=== PATIENT | female | born 1990 | race Caucasian/White ===

== ENCOUNTER 2019-11-15 14:22 | Emergency (ER) | payer MEDICAID, SELFPAY ==
[2019-11-15 14:45] VITALS: BP 126/94; PULSE 81; RESP 20; TEMP 36.9; O2SAT 99; BMI 33.3
--- NOTE | 2019-11-15 14:50 | XR_ITS ---
PROCEDURE: XR FOOT LT MIN 3V CLINICAL INDICATION: STEPPED ON A NAIL Pain COMPARISON: No exams were available for comparison FINDINGS: No fracture or dislocation. No lytic or blastic change. There is normal mineralization. The joint spaces are well-preserved. No significant degenerative/arthritic changes. No erosive changes evident. Other findings:None. IMPRESSION: No acute findings. Dictated by: Tavon Wallis MD 11/15/2019 15:35 Electronically signed by Tavon Wallis MD in [place] 11/15/2019 15:35
--- NOTE | 2019-11-15 15:41 | HMH.EDUTC ---
[facility] [place] Disposition Clinical Impression: Puncture wound of left foot, Poison vandana Disposition: Home, Self-Care Condition on Discharge: Good Instructions: DI for Poison Vandana Allergy, DI for Puncture Wound Additional Instructions: Keep the wounds clean and dry. Follow up with your regular doctor. Take the antibiotics as directed and apply the topical antibiotics as directed. Watch the puncture wounds for signs of worsening infection, such as worsening redness, drainage, swelling, etc. GO TO THE ER FOR ANY WORSENING SYMPTOMS The triamcinolone cream (steroid cream) is for the poison vandana area on top of your foot. The mupirocin (bactroban-antibiotic) ointment is for the puncture wound. Prescriptions: Amoxicillin/Potassium Clav [Augmentin 875-125 Tablet] 1 tab PO Q12H 10 Days #20 tab Transmission Status: Received by [employer] Mupirocin [Bactroban 2% Ointment 22gm tube] 1 applicatio TP TID 7 Days #1 tube Transmission Status: Received by [employer] Triamcinolone Acetonide 1 applicatio TP TIDP PRN 7 Days #1 tube PRN Reason: Itching Transmission Status: Received by [employer] Referrals: Provider,Referral, [Primary Care Provider] - Time of Disposition: 15:44 Medical Decision Making - Medical Records Medical records reviewed: No: I reviewed the patient's medical records. - Hany Inquiry Pt receiving controlled substance: No Vital Signs: 11/15/19 14:45 11/15/19 15:48 Temperature 98.4 F 98.4 F Temperature Source Oral Pulse Rate 81 Pulse Rate [Left Brachial] 81 Respiratory Rate 20 20 Blood Pressure 126/94 H Blood Pressure [Left Arm] 126/94 H Blood Pressure Mean [Left Arm] 104 Blood Pressure Source [Left Arm] Automatic Cuff Blood Pressure Position [Left Arm] Sitting 02 Sat by Pulse Oximetry 99 Oxygen Delivery Method Room Air Orders (Tests/Meds): ED MEDICATIONS Discontinued Medications Generic Name Dose Route Start Last Admin Trade Name Freq PRN Reason Stop Dose Admin Tetanus/Reduced Diphtheria/Acell Pertussis 0.5 ml 11/15/19 15:01 11/15/19 15:32 Adacel Tdap 0.5ml Syringe IM 11/15/19 15:02 0.5 ml .ONCE ONE Administration - Radiology Data #1 Image(s): Foot/Toes Image Reviewed: Yes I reviewed the patient's radiology image, Yes I have reviewed radiologist's interpretation Preliminary Findings: Normal/NAD PROCEDURE: XR FOOT LT MIN 3V CLINICAL INDICATION: STEPPED ON A NAIL Pain COMPARISON: No exams were available for comparison FINDINGS: No fracture or dislocation. No lytic or blastic change. There is normal mineralization. The joint spaces are well-preserved. No significant degenerative/arthritic changes. No erosive changes evident. Other findings:None. IMPRESSION: No acute findings. [facility] [place] HPI - General Stated complaint: nail in foot Time Seen by Provider: 11/15/19 14:50 Mode of Arrival: Ambulatory Source of Information: Patient Limitations: No Limitations Description of Symptoms (Recalled from Triage Doc. by RN): PATIENT STATES SHE WAS WALKING THROUGH HER YARD APPROX 2 HOURS AGO AND STEPPED ON A CHIARA NAIL WITH HER LEFT FOOT. TETANUS SHOT NOT UP TO DATE. POSSIBLE POISON VANDANA RASH NOTED TO LEFT GREAT TOE AREA HEENT Symptoms (Recalled from RN notes): No Resp Symptoms (Recalled from RN notes): No Skin Symptoms (Recalled from RN notes): Yes MS Symptoms (Recalled from RN notes): No Functional Status (Recalled from RN notes): WNL - History of Present Illness Provider Complaint: She states that today she stepped on a board that had a nail in it. The nail punctured the bottom of her left foot. She is not diabetic. Her tetanus immunization is not up to date. - Related Data Previous Rx's Medication Instructions Recorded Amoxicillin/Potassium Clav 1 tab PO Q12H 10 Days #20 tab 11/15/19 [Augmentin 875-125 Tablet] Mupirocin [Bactroban 2% Ointment 1 applicatio TP TID 7 Days #1 tube 11/15/19 22gm tube]
[2019-11-15 15:48] VITALS: BP 126/94; PULSE 81; RESP 20; TEMP 36.9; O2SAT 99
== END 2019-11-15 15:54 | disposition home or self-care (01) ==
PROVIDERS: Emergency Provider Nurse Practitioner Family
DX: S91.332A Puncture wound without foreign body, left foot, initial encounter (principal); L23.7 Allergic contact dermatitis due to plants, except food; Z23 Encounter for immunization; W22.8XXA Striking against or struck by other objects, initial encounter; Y92.017 Garden or yard in single-family (private) house as the place of occurrence of the external cause; F17.210 Nicotine dependence, cigarettes, uncomplicated; Z88.1 Allergy status to other antibiotic agents; Z88.6 Allergy status to analgesic agent
CPT/HCPCS: 73630; 90471; 90715; 99201

== ENCOUNTER 2024-10-30 08:32 | Outpatient (CLI) | payer OTHER, SELFPAY ==
--- NOTE | 2024-10-30 09:00 | CA_ITS ---
APPROVED REPORT EXAM: Comprehensive 2D, Doppler, and color-flow Echocardiogram Toll Booth Operator: Consuelo Lara RT(R) Ht: 5 ft 5 in Wt: 231lbs BSA: 2.10 BP: 115/80 mmHg Indications: LV function, smoker, fatigue, SOB, edema. 2D Dimensions LVEF (Light's) 45.30 % F: 54 - 74 LV Volume 100.50 mL F: 46 - 106 LV Volume Index 47.9 mL/m2 F: 29 - 61 EF AP4 56.40 % EF AP2 35.7 % EF BP 45.3 % GL Strain -15.7 % M-Mode Dimensions RVDd 3.28 cm (0.9-2.6) LA Diam 2.73 cm (1.9-4.0) LVDd 4.17 cm (3.5-5.7) LVDs 2.96 cm (3.5-5.7) IVSd 0.78 cm (0.6-1.1) PWd 0.75 cm (0.6-1.1) EF (Teich) 56.10% FS 29.00% EDV (Teich) 77.30 mL ESV (Teich) 33.90 mL LV Diastology E Decel Time 170 (160-240 msec) E/A Ratio 1.3 Mitral Valve MV E Max Paul. 67.0 (40-130 cm/s) MV A Velocity 53.0 (40-130 cm/s) E/A Ratio 1.27 MV PHT 50.0 ms Left Ventricle The left ventricle is normal size. The left ventricular systolic function is normal. The left ventricular ejection fraction is within the normal range. There is normal left ventricular wall thickness. There is normal LV segmental wall motion. The left ventricular diastolic function is normal. LVEF is 55%. Right Ventricle The right ventricle is normal size. The right ventricular systolic function is normal. Atria The left atrium size is normal. The right atrium size is normal. There is no Doppler evidence of interatrial shunt. Aortic Valve The aortic valve opens well. There is no aortic valvular stenosis. No aortic regurgitation is present. Mitral Valve The mitral valve is normal in structure. No evidence of mitral valve stenosis. Trace mitral regurgitation. Tricuspid Valve Tricuspid valve is grossly normal in structure and function. Trace tricuspid regurgitation. There is insufficient TR jet to estimate RVSP. Pulmonic Valve The pulmonary valve is normal in structure. Trace pulmonic regurgitation. Great Vessels The aortic root is normal in size. IVC is normal in size and collapses >50% with inspiration. Pericardium There is no pericardial effusion. Other Information Study Quality: Fair Conclusion Normal biventricular systolic function. No significant valvular stenosis or regurgitation. Electronically signed by : Erinn Marquez MD 11/04/2024 22:36:58
--- NOTE | 2024-10-30 10:00 | US_ITS ---
FINAL REPORT TECHNIQUE: Sonographic images of the thyroid were obtained. CLINICAL HISTORY: Hoarseness COMPARISON: None FINDINGS: THYROID ULTRASOUND The right thyroid gland measures 4.1 x 1.2 x 1.7 cm. The parenchyma shows normal echogenicity. No dominant mass is seen. The left thyroid gland measures 4.3 x 1.2 x 1.7 cm. The parenchyma shows normal echogenicity. No dominant mass is seen. IMPRESSION: Unremarkable thyroid evaluation Reviewed, Interpreted and Dictated by Lawrence Coles MD Transcribed by Kristal Gilmore Authenticated and . [facility]
== END 2024-10-30 23:59 | disposition home or self-care (01) ==
LOC: RT 08:33
PROVIDERS: PCP Nurse Practitioner; Visit Provider Nurse Practitioner
DX: F17.200 Nicotine dependence, unspecified, uncomplicated (principal); R49.0 Dysphonia; R60.9 Edema, unspecified; R53.83 Other fatigue; R06.02 Shortness of breath
CPT/HCPCS: 76536; 93306

== ENCOUNTER 2024-11-13 09:29 | Outpatient (CLI) | payer OTHER, SELFPAY ==
--- OUTSIDE RECORDS SUMMARY | 2024-11-13 09:34 | XMS_ITS | Clinical Summary ---
Author Organization Healthcare Address [facility] [place] [address] Care Team Providers Care Yarn Texture Machine Operator Name Role Phone Catherine Austin APRN Primary Care Provider [phone] Allergies Active Allergy Reactions Criticality Noted Date Comments Ibuprofen Rash Medium 04/20/2022 Medications Ventolin HFA 108 (90 Base) MCG/ACT inhaler INHALE 1-2 PUFFS EVERY 4 HOURS NEEDED 03/29/2022 Active traZODone (Desyrel) 50 MG tablet TAKE 1 TABLET 1 TIME EACH DAY AT BEDTIME 03/29/2022 Active Social History Tobacco Use Types Packs/Day Years Used Date Smoking Tobacco: Every Day Cigarettes 1 16 Smokeless Tobacco: Never Tobacco Cessation:Ready to Q uit: Yes; Counseling Given: Yes PHQ-2 Answer Date Recorded Patient Health Questionnaire-2 Score 0 04/20/2022 Comments Unknown Sex and Gender Information Value Date Recorded Sex Assigned at Not on file Legal Sex Female 9:48 PM EDT Gender Identity Not on file Sexual Orientation Not on file Last Filed Vital Signs Vital Sign Reading Time Taken Comments Blood Pressure 129/88 04/20/2022 9:24 AM EST Pulse 92 04/20/2022 9:24 AM EST Temperature 36.7 C (98 F) 04/20/2022 9:24 AM EST Respiratory Rate - - Oxygen Saturation 98% 04/20/2022 9:24 AM EST Inhaled Oxygen Concentration - - Weight 102 kg (225 lb 5 oz) 04/20/2022 9:[address] Height 162.6 cm (5' 4 ) 04/20/2022 9:24 AM EST Body Mass Index 38.67 04/20/2022 9:24 AM EST Plan of Treatment Health Maintenance Due Date Last Done Comments [facility]-HIV Screening 1989 [facility]-/Child/Adol SDOH Screenings 1989 [facility]-Varicella Vaccines (1 of 2 - 13+ 2-dose series) 2002 HPV Vaccines (1 - 3-dose series) 2004 [facility]- SDOH Screenings 2007 [facility]-Adult SDOH Screenings 2007 [facility]-Pap Smear 2010 [facility]-Cervical Cancer Screening 2019 [facility]-HPV/Cotest 2019 [facility]-Depression Screening 04/20/2023 04/20/2022 [facility]-XSDAY-00 Vaccine ( - 2023- season) 2024 [facility]-Influenza Vaccine (Seas[place] n Ended) 2025 [facility]-DTaP,Tdap,and Td Vaccine s (3 - Td or Tdap) 11/14/2029 11/15/2019, 06/10/2004 [facility]-Zoster Vaccines (1 of 2) 2039 [facility]-Hepatitis B Vaccines Completed 002, 06/28/2001, 05/24/2001 [facility]-Hepatitis C Screening Completed 04/20/2022 [facility]-Obesity Intervention Completed 04/20/2022 [facility]-HIB Vaccines Aged Out No longer e ligible based on patient's age to complete this topic [facility]-Hepatitis A Vaccines Aged Out No longer eligible based on patient's age to complete this topic [facility]-IPV Vaccines Aged Out No longer e ligible based on patient's age to complete this topic [facility]-Pneumococcal Vaccine: Pediatrics (0 to 5 Years) and At-Risk Patients (6 to 49 Years) Aged Out No longer eligible b ased on patient's age to complete this topic [facility]-Rotavirus Vaccines Aged Out No lo nger eligible based on patient's age to complete this topic Procedures Procedure Name Priority Date/Time Associated Diagnosis Comments ACUTE HEPATITIS PANEL Routine 04/20/2022 10:45 AM EST Elevated rheumatoid factor from Last 3 Months or Most Recently Relevant to Health Maintenance Results * Acute Hepatitis Panel (04/20/2022 10:45 AM EST) Hepatitis B Surf Antigen Negative Negative 04/20/2022 1:41 PM EST [facility] Hepatitis C Antibody Negative Negative 04/20/2022 1:41 PM EST [facility] Hepatitis A Antibody IgM Negative Negative 04/20/2022 1:41 PM EST [facility] Hepatitis B Core Antibody IgM Negative Negative 04/20/2022 1:41 PM EST [facility] Blood Venous blood specimen / Unknown Venipuncture / Unknown 04/20/2022 10:45 AM EST 04/20/2022 10:45 AM EST us [facility] [employer] [facility] BLOOD ORDERABLES Fi nal [facility] [address] [place] [id number] from Last 3 Months or Most Recently Relevant to Health Maintenance Insurance idy [place] [address] [employer] Care Teams Yarn Texture Machine Operator Relationship Specialty Start Date End Date Catherine Austin APRN [address] [place] [id number] PCP - General 04/06/22
[2024-11-13 10:14] LABS: Basophils % 0.3 % (0.1-2.0); Eosinophils # 0.2 Kmm3 (0.0-0.4); Eosinophils % 2.3 % (0.1-12.0); Hematocrit 43.7 % (37.0-47.0); Hemoglobin 14.3 g/dL (12.2-16.2); Immature Granulocytes # 0.03 10^3uL; Immature Granulocytes % 0.3 %; Lymphocytes # 2.8 K/mm3 (0.7-4.5); Lymphocytes % 32.1 % (10-50); Mean Corpuscular HGB Conc 32.7 g/dL (31.8-35.4); Mean Corpuscular Hemoglobin 29.6 pg (27.0-31.2); Mean Corpuscular Volume 90.5 fl (81-99); Mean Platelet Volume 9.7 fl (7.4-10.4); Monocytes # 0.5 K/mm3 (0.1-1.0); Monocytes % 5.4 % (1.7-9.3); Neutrophils # 5.2 K/mm3 (1.8-7.8); Neutrophils % 59.6 % (37.0-80.0); Nucleated Red Blood Cells # 0 10^3/uL; Nucleated Red Blood Cells % 0 %; Platelet Count 263 K/mm3 (142-424); Red Blood Count 4.83 M/mm3 (4.20-5.40); Red Cell Distribution Width 12.6 % (11.5-17.5); Red Cell Distribution Width-SD 41.7 fL; White Blood Count 8.7 K/mm3 (4.8-10.8)
[2024-11-13 10:33] LABS: Albumin Level 4.4 g/dl (3.5-5.0)
[2024-11-13 10:36] LABS: Alanine Aminotransferase 22 U/L (12-78); Alkaline Phosphatase 107 U/L (38-126); Aspartate Amino Transferase 25 U/L (14-36); Bilirubin,Direct 0.1 mg/dl (0.0-0.4); Bilirubin,Unconjugated 0.1 mg/dL (0.0-1.1); Total Protein,Serum 7.1 g/dl (6.3-8.2)
[2024-11-13 10:37] LABS: Chol/HDL Ratio 4.1 (1-3.5); Cholesterol 150 mg/dl (140-200); HDL Cholesterol 37 mg/dl (40-60); Triglycerides 230 mg/dl (30-150); VLDL Cholesterol 46 mg/dL (0-40)
[2024-11-13 10:44] LABS: Bilirubin,Total 0.1 mg/dl (0.2-1.3)
[2024-11-13 10:47] LABS: NT Pro Brain Natriuretic Pep. 55.6 pg/mL (0-125)
[2024-11-13 10:48] LABS: Direct LDL Cholesterol 65.12 mg/dL (100-129)
[2024-11-13 10:56] LABS: Triiodothryronine (T3) Uptake 29 % (23.5-40.5)
[2024-11-13 10:57] LABS: Free Thyroxine Index 2.3 ug/dL (5.93-13.13); T4 (Thyroxine) 7.8 ug/dl (5.53-11.0)
[2024-11-13 11:08] LABS: Thyroid Stimulating Hormone 3.58 uIU/mL (0.465-4.68)
[2024-11-13 11:10] LABS: Thyroid Stimulating Hormone 3.65 uIU/mL (0.465-4.68)
== END 2024-11-13 23:59 | disposition home or self-care (01) ==
LOC: LAB 09:29
PROVIDERS: PCP Nurse Practitioner; Visit Provider Nurse Practitioner
DX: R49.0 Dysphonia (principal)
CPT/HCPCS: 36415; 80061; 80076; 83735; 83880; 84436; 84443; 84479; 85025